=== PATIENT | female | born 1935 | race Caucasian/White ===

== ENCOUNTER → 2017-03-17 | Outpatient (CLI) | payer OTHER ==
[~2017-03-17] MED LIST: ARIMIDEX1 MG PO; ASPIRIN PO; ASPIRIN81 MG PO; COUMADIN PO; EFFEXOR PO; EFFEXOR75 M3 PO; FAMOTIDINE PO; NORVASC PO; SYNTHROID PO; VICODIN PO; ZOCOR PO
--- NOTE | ~2017-03-17 | MY8 ---
[facility] A Service of [facility] RADIOLOGY TEXT RESULTS PATIENT: MARÍA BOOGIE LOCATION: [facility] : 36 UNIT #: [id number] AGE: [address]: EDITH BREAUX APRN SEX: F ORDER DR: [id number] [facility] [address] [place], [place] [address] [id number] O MR#: [id number] Acc #: [id number] NAME: MARÍA BOOGIE : 1935 SEX: F STUDY DATE/TIME: 03/17/2017 14:02 UNIT: [facility] ROOM: STUDY DESCRIPTION: MY Mammogram Dx Dig Rt Attending Physician: Edith Breaux M.D. Ordering Physician: Edith Breaux M.D. Primary Care Physician: Edith Breaux M.D. MEDICAL IMAGING REPORT This report is preliminary unless electronic signature is present EXAM Right digital diagnostic mammogram INDICATIONS History of left breast cancer post lumpectomy. Followup. PROCEDURE CC, MLO and true lateral views of the right breast were obtained. Bilateral diagnostic mammogram was ordered. However, patient has an extremely hard and tender left breast and declined the left breast diagnostic mammogram. Obtained images were obtained on a digital mammography unit. An FDA-approved CAD device was utilized. COMPARISON 08/18/2009. FINDINGS Scattered fibroglandular density in the right breast. There are scattered benign calcifications. No dominant mass or suspicious calcification. Ultrasound of the left breast was performed. The left breast ultrasound shows nonspecific heterogeneous echotexture throughout the left breast. A single dominant mass is not clearly seen. On visual inspection of the left breast, the left breast is red with overlying skin thickening, nipple necrosis, and is extremely hard. IMPRESSION 1. Patient declined left breast diagnostic mammogram. 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 Recommend punch biopsy which would be performed by either a breast surgeon or engagement manager. [facility] A Service of [facility] RADIOLOGY TEXT RESULTS PATIENT: MARÍA BOOGIE LOCATION: [facility] : 36 UNIT #: [id number] AGE: [address]: EDITH BREAUX APRN SEX: F ORDER DR: 2. Benign findings in the right breast. BIRADS: 4 Suspicious abnormality; biopsy should be considered. Patients over the age of 40 are entered into a reminder system with target due date for the next mammogram. A result letter will also be sent to the patient. Dictated by... Kaz Estevez M.D. THIS IS AN ELECTRONICALLY VERIFIED REPORT Kaz Estevez M.D. at 03/21/2017 7:22 AM EED/viv TD: 03/17/2017 20:25 JOB #: [id number] MEDICAL IMAGING REPORT Page 1 of 1 COPY
--- NOTE | ~2017-03-17 | US24 ---
[facility] A Service [facility] RADIOLOGY TEXT RESULTS PATIENT: MARÍA BOOGIE LOCATION: [facility] : 37 UNIT #: [id number] AGE: [address]: EDITH BREAUX APRN SEX: F ORDER DR: [id number] [facility] [address] [place], [place] [address] [id number] O MR#: [id number] Acc #: [id number] NAME: MARÍA BOOGIE : 1935 SEX: F STUDY DATE/TIME: 03/17/2017 14:31 UNIT: [facility] ROOM: STUDY DESCRIPTION: US Breast Unilateral Attending Physician: Edith Breaux M.D. Ordering Physician: Edith Breaux M.D. Primary Care Physician: Edith Breaux M.D. MEDICAL IMAGING REPORT This report is preliminary unless electronic signature is present EXAM Left breast ultrasound INDICATIONS Left breast cancer. Abnormal left breast and hardness skin thickening. TECHNIQUE Barnes-scale and Doppler imaging of the left breast was performed. COMPARISON STUDIES Concurrently for right diagnostic mammogram. IMPRESSION Refer to the separately dictated diagnostic mammogram for complete workup findings and recommendations. BIRADS: 4 Suspicious abnormality; biopsy should be considered. Findings were called to [facility], which ordered the study. This was done prior to dictation. Dictated by... Kaz Estevez M.D. THIS IS AN ELECTRONICALLY VERIFIED REPORT Kaz Estevez M.D. at 03/21/2017 7:22 AM EED/pcl TD: 03/17/2017 20:40 JOB #: [id number] [facility] A Service [facility] RADIOLOGY TEXT RESULTS PATIENT: MARÍA BOOGIE LOCATION: [facility] : 37 UNIT #: [id number] AGE: [address]: BRENT, EDITH LEAFLET DISTRIBUTOR SEX: F ORDER DR: MEDICAL IMAGING REPORT Page 1 of 1 COPY
== END | disposition home or self-care (01) ==
LOC: CMAM 03-16 13:00
DX: N63 Unspecified lump in breast (principal); Z88.0 Allergy status to penicillin
CPT/HCPCS: 76641; G0206